=== PATIENT | male | born 1975 | race Caucasian/White ===

== ENCOUNTER 2016-12-03 23:38 | Emergency (ER) | payer OTHER ==
[~2016-12-03] VITALS: Ht 175.3 cm; Wt 72.6 kg
[2016-12-03 23:45] VITALS: BP 134/70
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
[2016-12-03] MEDS ORDERED: GABA-586 PO (23:54)
[2016-12-04] MEDS ORDERED: LIDOCAINE WITH 8.4% SOD BICARB 3 ML DISP.SYRIN. IJ ONE ×2 (00:18→01:15)
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
[2016-12-04] MEDS ORDERED: CLINDAMYCIN HCL 150 MG CAPSULE PO ONE (01:15)
[2016-12-04] MEDS ORDERED: CLIN300C8 PO (01:17)
[2016-12-04] MEDS ORDERED: TRAM50TA PO (01:21)
[2016-12-04] MEDS ORDERED: traMADol 50 MG TABLET PO ONE (01:30)
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
== END 2016-12-04 01:30 | disposition home or self-care (01) ==
LOC: EEVIPCON 23:38 → ER 23:38
DX: S09.8XXA Other specified injuries of head, initial encounter (principal); S01.112A Laceration without foreign body of left eyelid and periocular area, initial encounter; S01.512A Laceration without foreign body of oral cavity, initial encounter; M25.522 Pain in left elbow; Z88.0 Allergy status to penicillin; Z88.6 Allergy status to analgesic agent; Y04.0XXA Assault by unarmed brawl or fight, initial encounter; Y93.89 Activity, other specified; Y99.8 Other external cause status; Y92.149 Unspecified place in prison as the place of occurrence of the external cause
CPT/HCPCS: 12013; 70450; 70486; 72125; 73080; 99284-25

== ENCOUNTER 2017-06-17 18:04 | Emergency (ER) | payer OTHER ==
[~2017-06-17] VITALS: Ht 175.3 cm; Wt 72.1 kg
[~2017-06-17 18:04] MED LIST: CLIN300C8 PO; GABA-586 PO; TRAM50TA PO
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
[2017-06-17] MEDS ORDERED: DIPHTH,PERTUSS(ACELL),TET TOX 0.5 ML DISP.SYRIN. VAX IM ONE (18:30)
[2017-06-17] MEDS ORDERED: LIDOCAINE 1% Multi-Dose 20 ML VIAL. IJ ONE (18:30)
[2017-06-17 19:20] VITALS: BP 129/62
== END 2017-06-17 19:28 | disposition home or self-care (01) ==
LOC: ER 18:04
DX: S61.210A Laceration without foreign body of right index finger without damage to nail, initial encounter (principal); F15.10 Other stimulant abuse, uncomplicated; Z88.0 Allergy status to penicillin; Z88.6 Allergy status to analgesic agent; W45.8XXA Other foreign body or object entering through skin, initial encounter; Y93.89 Activity, other specified; Y99.8 Other external cause status; Y92.89 Other specified places as the place of occurrence of the external cause
CPT/HCPCS: 12001; 90471; 90715; 99283-25